=== PATIENT | male | born 1985 | race American Indian/Alaskan Native ===

== ENCOUNTER 2017-02-20 17:41 | Emergency (ER) | payer MEDICAID ==
[2017-02-20 18:28] LABS: Urine Drugs of Abuse Note Disclamer
[2017-02-20 18:41] LABS: Basophils % (Auto) 0.9 % (0.0-1.8); Hematocrit 40.2 % (35.5-45.6); Hemoglobin 13.3 gm/dl (11.8-15.2); Mean Corpuscular HGB Conc 33 % (32-34); Mean Corpuscular Hemoglobin 26 pg (28-32); Mean Corpuscular Volume 79 fl (84-94); Platelet Count 152 K/mm3 (140-440); Red Blood Count 5.08 M/mm3 (3.65-5.03); Red Cell Distribution Width 15.7 % (13.2-15.2)
[2017-02-20 18:42] LABS: Bilirubin,Urine NEG (Negative); Blood,Urine NEG (Negative); Ketones,Urine NEG (Negative); Leukocyte Esterase,Urine NEG (Negative); Nitrite,Urine NEG (Negative); Protein,Urine <15 mg/dL mg/dL (Negative); Urobilinogen,Urine < 2.0 mg/dL (<2.0)
[2017-02-20 18:48] LABS: Anion Gap 17 mmol/L; Blood Urea Nitrogen 9 mg/dL (9-20); Carbon Dioxide 25 mmol/L (22-30); Chloride 93.4 mmol/L (98-107); Glucose 94 mg/dL (75-100); Potassium 3.3 mmol/L (3.6-5.0); Sodium 132 mmol/L (137-145)
[2017-02-20] MEDS ORDERED: K-DUR PO ONE ×2 (19:04→23:54)
[2017-02-20] MEDS ORDERED: BENADRYL PO ONE ×2 (19:43→23:54)
[2017-02-20] MEDS ORDERED: ATIVAN IM PRN (19:43)
--- NOTE | 2017-02-20 19:44 | Emergency Department Report ---
ED Psych HPI - General Chief Complaint: Psych Stated Complaint: VOLUNTARY 1013 Time Seen by Provider: 02/20/17 19:36 Source: patient, EMS (ems notes not available at time of chart dictation), RN notes reviewed Mode of arrival: Ambulatory Limitations: No Limitations - History of Present Illness Initial Comments: This is a 31-year-old male. He is previously unknown to me. He reports a past history of schizophrenia. Patient presents to the ER with suicidal ideation and chronic renal hallucinations. He has no headache, neck pain, chest pain, abdominal pain or shortness of breath. He does not have access to guns or firearms. He denies intentional overdose. He states his symptoms are constant. He reports no exacerbating or relieving factors. He further reports that he has no pain. He requests Benadryl to help out with anxiety. MD Complaint: suicidal ideation, feels depressed -: Gradual Associated Psychiatric Symptoms: depression, suicidal ideation, auditory hallucinations History of same: Yes Quality: constant Improves With: none Worsens With: none If Self Harm: admits thoughts of - Related Data Allergies Allergy/AdvReac Type Severity Reaction Status Date / Time No Known Allergies Allergy Unverified 02/20/17 18:07 ED Review of Systems ROS: Stated complaint: VOLUNTARY 1013 Other details as noted in HPI Constitutional: denies: fever Eyes: denies: vision change ENT: denies: epistaxis Respiratory: denies: cough Cardiovascular: denies: chest pain Gastrointestinal: denies: abdominal pain Genitourinary: denies: urgency Musculoskeletal: denies: back pain Skin: denies: lesions Neurological: denies: headache Psychiatric: anxiety, auditory hallucinations, suicidal thoughts. denies: homicidal thoughts ED Past Medical Hx - Past Medical History Hx Psychiatric Treatment: Yes (schizophrenia) - Surgical History Past Surgical History?: Yes Additional Surgical History: testicular surgery - Social History Smoking Status: Current Some Day Smoker Substance Use Type: Alcohol ED Physical Exam - General Limitations: No Limitations General appearance: alert, in no apparent distress - Head Head exam: Present: atraumatic, normocephalic - Eye Eye exam: Present: normal appearance, PERRL, EOMI. Absent: nystagmus - ENT ENT exam: Present: normal exam, normal orophraynx, mucous membranes moist, normal external ear exam - Neck Neck exam: Present: normal inspection, full ROM. Absent: tenderness, meningismus - Respiratory Respiratory exam: Present: normal lung sounds bilaterally. Absent: respiratory distress, wheezes, rales, rhonchi, stridor, chest wall tenderness, accessory muscle use, decreased breath sounds, prolonged expiratory - Cardiovascular Cardiovascular Exam: Present: regular rate, normal rhythm, normal heart sounds. Absent: systolic murmur, diastolic murmur, rubs, gallop - GI/Abdominal GI/Abdominal exam: Present: soft, normal bowel sounds. Absent: distended, tenderness, guarding, rebound, rigid, pulsatile mass - Rectal Rectal exam: Present: deferred - Extremities Exam Extremities exam: Present: normal inspection, normal capillary refill. Absent: pedal edema, joint swelling, calf tenderness - Back Exam Back exam: Present: normal inspection, full ROM. Absent: tenderness, CVA tenderness (R), CVA tenderness (L), muscle spasm, paraspinal tenderness, vertebral tenderness - Neurological Exam Neurological exam: Present: alert, oriented X3, normal gait, other (Extraocular movements intact. Tongue midline. No facial droop. Facial sensation intact to light touch in the V1, V2, V3 distribution bilaterally. 5 and 5 strength in 4 extremities.. Sensation is intact to light touch in 4 extremities.). Absent : motor sensory deficit - Psychiatric Psychiatric exam: Present: anxious, flat affect, suicidal ideation. Absent: homicidal ideation - Skin Skin exam: Present: warm, dry, intact, normal color. Absent: rash ED Course Vital Signs 02/20/17 02/20/17 02/20/17 18:13 18:14 23:50 Temperature 98.6 F 98.7 F Pulse Rate 79 105 H Respiratory 16 16 17 Rate Blood Pressure 126/74 126/85 [Right] O2 Sat by Pulse 100 100 97 Oximetry ED Medical Decision Making - Lab Data Result diagrams: 02/20/17 18:18 02/20/17 18:18 Vital Signs 02/20/17 02/20/17 18:13 18:14 Temperature 98.6 F Pulse Rate 79 Respiratory 16 16 Rate Blood Pressure 126/74 [Right] O2 Sat by Pulse 100 100 Oximetry Labs 02/20/17 02/20/17 02/20/17 18:18 18:18 18:18 WBC RBC Hgb Hct MCV MCH MCHC RDW Plt Count Lymph % (Auto) [place] % (Auto) Eos % (Auto) Baso % (Auto) Lymph # [place] # Eos # Baso # Seg Neutrophils % Seg Neutrophils # Sodium 132 L Potassium 3.3 L Chloride 93.4 L Carbon Dioxide 25 Anion Gap 17 BUN 9 Creatinine 0.9 Estimated GFR > 60 BUN/Creatinine Ratio 10.00 Glucose 94 Calcium 9.0 Total Creatine Kinase Urine Color Colorless Urine Turbidity Clear Urine pH 6.0 Ur Specific [place] 1.001 L Urine Protein <15 mg/dl Urine Glucose (UA) Neg Urine Ketones Neg Urine Blood Neg Urine Nitrite Neg Urine Bilirubin Neg Urine Urobilinogen < 2.0 Ur Leukocyte Esterase Neg Urine WBC (Auto) 0.0 Urine RBC (Auto) 0.0 Salicylates Urine Opiates Screen Presumptive negative Urine Methadone Screen Presumptive negative Acetaminophen Ur Barbiturates Screen Presumptive negative Ur Phencyclidine Scrn Presumptive negative Ur Amphetamines Screen Presumptive negative U Benzodiazepines Scrn Presumptive negative Urine Cocaine Screen Presumptive negative U Marijuana (THC) Screen Presumptive negative Drugs of Abuse Note Disclamer Plasma/Serum Alcohol 02/20/17 02/20/17 02/20/17 18:18 18:18 18:18 WBC 5.0 RBC 5.08 H Hgb 13.3 Hct 40.2 MCV 79 L MCH 26 L MCHC 33 RDW 15.7 H Plt Count 152 Lymph % (Auto) 27.3 [place] % (Auto) 7.3 Eos % (Auto) 1.0 Baso % (Auto) 0.9 Lymph # 1.4 [place] # 0.4 Eos # 0.0 Baso # 0.0 Seg Neutrophils % 63.5 Seg Neutrophils # 3.2 Sodium Potassium Chloride Carbon Dioxide Anion Gap BUN Creatinine Estimated GFR BUN/Creatinine Ratio Glucose Calcium Total Creatine Kinase 436 H Urine Color Urine Turbidity Urine pH Ur Specific [place] Urine Protein Urine Glucose (UA) Urine Ketones Urine Blood Urine Nitrite Urine Bilirubin Urine Urobilinogen Ur Leukocyte Esterase Urine WBC (Auto) Urine RBC (Auto) Salicylates Urine Opiates Screen Urine Methadone Screen Acetaminophen Ur Barbiturates Screen Ur Phencyclidine Scrn Ur Amphetamines Screen U Benzodiazepines Scrn Urine Cocaine Screen U Marijuana (THC) Screen Drugs of Abuse Note Plasma/Serum Alcohol < 0.01 02/20/17 02/20/17 18:18 18:18 WBC RBC Hgb Hct MCV MCH MCHC RDW Plt Count Lymph % (Auto) [place] % (Auto) Eos % (Auto) Baso % (Auto) Lymph # [place] # Eos # Baso # Seg Neutrophils % Seg Neutrophils # Sodium Potassium Chloride Carbon Dioxide Anion Gap BUN Creatinine Estimated GFR BUN/Creatinine Ratio Glucose Calcium Total Creatine Kinase Urine Color Urine Turbidity Urine pH Ur Specific [place] Urine Protein Urine Glucose (UA) Urine Ketones Urine Blood Urine Nitrite Urine Bilirubin Urine Urobilinogen Ur Leukocyte Esterase Urine WBC (Auto) Urine RBC (Auto) Salicylates < 0.3 L Urine Opiates Screen Urine Methadone Screen Acetaminophen < 15.0 Ur Barbiturates Screen Ur Phencyclidine Scrn Ur Amphetamines Screen U Benzodiazepines Scrn Urine Cocaine Screen U Marijuana (THC) Screen Drugs of Abuse Note Plasma/Serum Alcohol - Medical Decision Making Differential diagnosis: Schizophrenia, psychosis, medical clearance for psychiatric placement Assessment and plan: 31-year-old male with depression and suicidality. He is afebrile, with reassuring vital signs, and an unremarkable physical examination , has a GCS of 15, with an NIH score of 0, and walks with a steady gait. He is placed on a 1013. His laboratory studies are unremarkable with the exception of mild hypokalemia. He is treated with Benadryl. He is placed for as needed Ativan. At this point in time, there does not appear to be any immediate medical contraindication to psychiatric admission/evaluation. The crisis team was informed. Critical care attestation.: If time is entered above; I have spent that time in minutes in the direct care of this critically ill patient, excluding procedure time. ED Disposition Clinical Impression: Mood disorder Disposition: [id number]/TX-65 PSY HOSP/PSY UNIT Is pt being admited?: No Does the pt Need Aspirin: No Condition: Stable Referrals: PRIMARY CARE, [Primary Care Provider] - 3-5 Days
--- NOTE | 2017-02-21 16:12 | Consultation ---
History of Present Illness - Reason for Consult Consult date: 02/21/17 Reason for consult: psychiatric evaluation - Chief Complaint Chief complaint: "I was stressed out" This is a 31-year-old male seen for psychiatric evaluation in the emergency department. He presented with suicidal ideation and hallucinations. He reports a past history of schizophrenia. He states that he made the statement that he wanted to hurt himself on false pretenses. He states that his goal of coming to the emergency Department was to get rest and his Invega Sustenna injection. Although he states he scheduled to receive his Invega Sustenna on Wednesday. He states that someone comes to his home to make sure he gets his medication. He is currently staying in transitional housing. He states he doesn't like it there because he cannot control his money that he gets from [facility]. He states he's been on other medications besides Invega, to include: Haldol, Risperdal, other older atypical antipsychotics. He states that Invega is more spiritual because it doesn't have the side effects like the other medicines do. He reports anxiety. He denies auditory hallucinations. He appears to be preoccupied on exam. He states his psychotic presentation involves auditory hallucinations which are overwhelming and surround him. He currently denies suicidal or homicidal ideation. He states that there are 2 men that have been following him around and want to kill him. He states he does not know why they would want to hurt him. He denies this being paranoia. Medications and Allergies Allergies Allergy/AdvReac Type Severity Reaction Status Date / Time No Known Allergies Allergy Unverified 02/20/17 18:07 Active Meds: Active Medications Lorazepam (Ativan) 2 mg IM Q4HR PRN PRN Reason: Agitation Past psychiatric history - Past Medical History Past Medical History: No medical history Past Surgical History: No surgical history - past Psychiatric treatment and history Psych: Schizophrenia psychiatric treatment history: He reports being hospitalized "a few times" within the last 12 months. He is not aware that he has been acting. Tonia does report some money comes to his home. He reports that over the last year he missed his Invega Sustenna injection 6 months out of that time. He was last hospitalized 01/10/2017. He currently resides in the [facility] [] Transitional home. ([phone])-Kam is the contact. - Social History Social history: other (denies alcohol or substance use) Mental Status Exam - Vital signs Last Vital Signs Temp 97.5 F L 02/21/17 10:09 Pulse 72 02/21/17 10:09 Resp 18 02/21/17 10:09 BP 102/54 02/21/17 10:09 Pulse Ox 97 02/21/17 10:09 - Exam Orientation: time, place, person Affect: flat Mood: anxious Thought content: paranoia, other (sabianist thought content. No suicidal or homicidal ideation.) Thought Process: Circumstantial Perceptions: auditory (he is preoccupied, looking around during the interview.) Concentration: distractible Motor activity: other (retarded) Level of consciousness: alert Memory: Intact Sleep Symptoms: None Interaction: cooperative Results Result Diagrams: 02/20/17 18:18 02/20/17 18:18 Abnormal lab results 02/20/17 02/20/17 02/20/17 Range/Units 18:18 18:18 18:18 RBC 5.08 H (3.65-5.03) M/mm3 MCV 79 L (84-94) fl MCH 26 L (28-32) pg RDW 15.7 H (13.2-15.2) % Sodium 132 L (137-145) mmol/L Potassium 3.3 L (3.6-5.0) mmol/L Chloride 93.4 L (98-107) mmol/L Total Creatine Kinase (55-170) units/L Ur Specific [place] 1.001 L (1.003-1.030) Salicylates (2.8-20.0) mg/dL 02/20/17 02/20/17 Range/Units 18:18 18:18 RBC (3.65-5.03) M/mm3 MCV (84-94) fl MCH (28-32) pg RDW (13.2-15.2) % Sodium (137-145) mmol/L Potassium (3.6-5.0) mmol/L Chloride (98-107) mmol/L Total Creatine Kinase 436 H (55-170) units/L Ur Specific [place] (1.003-1.030) Salicylates < 0.3 L (2.8-20.0) mg/dL All other labs normal. Assessment and Plan Assessment and plan: Impression: Schizophrenia, paranoid type Noncompliant with medication Recommendation: 1013 and transferred to inpatient psychiatric facility for further stabilization. Invega is not available in the hospital. The appropriate next choice would be Risperdal. That he is opposed to taking Risperdal stating that he had muscle spasms previously. He is also unwilling to try it with Benadryl or Cogentin.
[2017-02-22] MEDS ORDERED: HABITROL TD PRN (09:18)
--- NOTE | 2017-02-22 17:52 | Progress Note ---
Subjective - Reason for Consult Consult date: 02/22/17 Reason for consult: Psychiatry Follow-up - Chief Complaint Chief complaint: "I was making all this up" This is a 31-year-old male seen for psychiatric evaluation in the emergency department. Today patient is calm and cooperative during the assessment. He stated that he "lied" about being suicidal and experiencing AH's. He stated that he wanted to get his Invega injection early. He stated that he is scheduled to get the injection Wednesday. Patient could have contacted the agency who schedule the Invega injection, but decided to come to [facility] instead. He denies SI/HI's, AVH's, and depression. He refuses to take risperdal po because of side effects experienced in the past. Mental Status Exam - Vital signs Last Vital Signs Temp 97.9 F 02/22/17 09:06 Pulse 69 02/22/17 09:06 Resp 16 02/22/17 09:06 BP 112/68 02/22/17 09:06 Pulse Ox 99 02/22/17 09:06 - Exam Narrative exam: MSE: Appearance: calm Behavior: regular eye contact Speech: regular rate and tone Mood: "I'm okay" Affect: labile Thought Process: circumstantial Thought Content: denies SI/HI's and AVH's Motor Activity: ambulatory Cognition: A/Ox 3 Insight: limited Judgment: limited Assessment and Plan Impression: Historical Dx: Schizophrenia. Today patient is calm and cooperative during the assessment. Recommendation/Plan: Evaluate 1013 in 24 hours to determine proper dispo.
[2017-02-23 10:45] VITALS: BP 101/64
--- NOTE | 2017-02-23 14:56 | Progress Note ---
Subjective - Reason for Consult Consult date: 02/23/17 Reason for consult: Psychiatry Follow-up - Chief Complaint Chief complaint: "I am ready to go" This is a 31-year-old male seen for psychiatric evaluation in the emergency department. Today patient is calm and cooperative during the assessment. He stated that he learned his lesson about "not being truthful" on admission. He denies SI/HI's, paranoia, and AVH's. He stated that he will get his invega injection tomorrow. Mental Status Exam - Vital signs Last Vital Signs Temp 98.1 F 02/23/17 10:36 Pulse 84 02/23/17 10:36 Resp 20 02/23/17 10:44 BP 101/64 02/23/17 10:36 Pulse Ox 98 02/23/17 10:44 - Exam Narrative exam: MSE: Appearance: calm Behavior: regular eye contact Speech: regular rate and tone Mood: "okay" Affect: congruent to mood Thought Process: linear Thought Content: denies SI/HI's and AVH's Motor Activity: ambulatory Cognition: A/Ox 3 Insight: fair Judgment: fair Assessment and Plan Impression: Historical Dx: Schizophrenia. Today patient is calm and cooperative during the assessment. Patient is no threat to self or others. Recommendation/Plan: Rescind 1013. Patient is seen at [facility] for his psy services.
--- NOTE | 2017-02-23 19:09 | Event Note ---
Date: 02/23/17 Patient is not homicidal or suicidal. He has no complaints at this time. He is much more lucid, cogent and organized and on my prior evaluation. His 1013 has been discontinued by the psychiatric team. patient will be discharged with instructions to follow up with outpatient psychiatry [place]. 1013 is discontinued. Vital Signs 02/20/17 02/20/17 02/20/17 18:13 18:14 23:50 Temperature 98.6 F 98.7 F Pulse Rate 79 105 H Respiratory 16 16 17 Rate Blood Pressure [Left] Blood Pressure 126/74 126/85 [Right] O2 Sat by Pulse 100 100 97 Oximetry 02/21/17 02/21/17 02/22/17 10:09 22:00 09:06 Temperature 97.5 F L 98.6 F 97.9 F Pulse Rate 72 96 H 69 Respiratory 18 16 16 Rate Blood Pressure 112/68 [Left] Blood Pressure 102/54 96/58 [Right] O2 Sat by Pulse 97 98 99 Oximetry 02/22/17 02/23/17 02/23/17 21:00 04:56 10:36 Temperature 98.6 F 98.1 F Pulse Rate 81 84 Respiratory 18 18 20 Rate Blood Pressure 98/59 [Left] Blood Pressure 101/64 [Right] O2 Sat by Pulse 98 98 98 Oximetry 02/23/17 10:44 Temperature Pulse Rate Respiratory 20 Rate Blood Pressure [Left] Blood Pressure [Right] O2 Sat by Pulse 98 Oximetry Lab Results 02/20/17 02/20/17 02/20/17 Range/Units 18:18 18:18 18:18 WBC (4.5-11.0) K/mm3 RBC (3.65-5.03) M/mm3 Hgb (11.8-15.2) gm/dl Hct (35.5-45.6) % MCV (84-94) fl MCH (28-32) pg MCHC (32-34) % RDW (13.2-15.2) % Plt Count (140-440) K/mm3 Lymph % (Auto) (13.4-35.0) % [place] % (Auto) (0.0-7.3) % Eos % (Auto) (0.0-4.3) % Baso % (Auto) (0.0-1.8) % Lymph # (1.2-5.4) K/mm3 [place] # (0.0-0.8) K/mm3 Eos # (0.0-0.4) K/mm3 Baso # (0.0-0.1) K/mm3 Seg Neutrophils % (40.0-70.0) % Seg Neutrophils # (1.8-7.7) K/mm3 Sodium 132 L (137-145) mmol/L Potassium 3.3 L (3.6-5.0) mmol/L Chloride 93.4 L (98-107) mmol/L Carbon Dioxide 25 (22-30) mmol/L Anion Gap 17 mmol/L BUN 9 (9-20) mg/dL Creatinine 0.9 (0.8-1.5) mg/dL Estimated GFR > 60 ml/min BUN/Creatinine Ratio 10.00 % Glucose 94 (75-100) mg/dL Calcium 9.0 (8.4-10.2) mg/dL Total Creatine Kinase (55-170) units/L Urine Color Colorless (Yellow) Urine Turbidity Clear (Clear) Urine pH 6.0 (5.0-7.0) Ur Specific [place] 1.001 L (1.003-1.030) Urine Protein <15 mg/dl (Negative) mg/dL Urine Glucose (UA) Neg (Negative) mg/dL Urine Ketones Neg (Negative) mg/dL Urine Blood Neg (Negative) Urine Nitrite Neg (Negative) Urine Bilirubin Neg (Negative) Urine Urobilinogen < 2.0 (<2.0) mg/dL Ur Leukocyte Esterase Neg (Negative) Urine WBC (Auto) 0.0 (0.0-6.0) /HPF Urine RBC (Auto) 0.0 (0.0-6.0) /HPF Salicylates (2.8-20.0) mg/dL Urine Opiates Screen Presumptive negative Urine Methadone Screen Presumptive negative Acetaminophen (10.0-30.0) ug/mL Ur Barbiturates Screen Presumptive negative Ur Phencyclidine Scrn Presumptive negative Ur Amphetamines Screen Presumptive negative U Benzodiazepines Scrn Presumptive negative Urine Cocaine Screen Presumptive negative U Marijuana (THC) Screen Presumptive negative Drugs of Abuse Note Disclamer Plasma/Serum Alcohol (0-0.07) gm% 02/20/17 02/20/17 02/20/17 Range/Units 18:18 18:18 18:18 WBC 5.0 (4.5-11.0) K/mm3 RBC 5.08 H (3.65-5.03) M/mm3 Hgb 13.3 (11.8-15.2) gm/dl Hct 40.2 (35.5-45.6) % MCV 79 L (84-94) fl MCH 26 L (28-32) pg MCHC 33 (32-34) % RDW 15.7 H (13.2-15.2) % Plt Count 152 (140-440) K/mm3 Lymph % (Auto) 27.3 (13.4-35.0) % [place] % (Auto) 7.3 (0.0-7.3) % Eos % (Auto) 1.0 (0.0-4.3) % Baso % (Auto) 0.9 (0.0-1.8) % Lymph # 1.4 (1.2-5.4) K/mm3 [place] # 0.4 (0.0-0.8) K/mm3 Eos # 0.0 (0.0-0.4) K/mm3 Baso # 0.0 (0.0-0.1) K/mm3 Seg Neutrophils % 63.5 (40.0-70.0) % Seg Neutrophils # 3.2 (1.8-7.7) K/mm3 Sodium (137-145) mmol/L Potassium (3.6-5.0) mmol/L Chloride (98-107) mmol/L Carbon Dioxide (22-30) mmol/L Anion Gap mmol/L BUN (9-20) mg/dL Creatinine (0.8-1.5) mg/dL Estimated GFR ml/min BUN/Creatinine Ratio % Glucose (75-100) mg/dL Calcium (8.4-10.2) mg/dL Total Creatine Kinase 436 H (55-170) units/L Urine Color (Yellow) Urine Turbidity (Clear) Urine pH (5.0-7.0) Ur Specific [place] (1.003-1.030) Urine Protein (Negative) mg/dL Urine Glucose (UA) (Negative) mg/dL Urine Ketones (Negative) mg/dL Urine Blood (Negative) Urine Nitrite (Negative) Urine Bilirubin (Negative) Urine Urobilinogen (<2.0) mg/dL Ur Leukocyte Esterase (Negative) Urine WBC (Auto) (0.0-6.0) /HPF Urine RBC (Auto) (0.0-6.0) /HPF Salicylates (2.8-20.0) mg/dL Urine Opiates Screen Urine Methadone Screen Acetaminophen (10.0-30.0) ug/mL Ur Barbiturates Screen Ur Phencyclidine Scrn Ur Amphetamines Screen U Benzodiazepines Scrn Urine Cocaine Screen U Marijuana (THC) Screen Drugs of Abuse Note Plasma/Serum Alcohol < 0.01 (0-0.07) gm% 02/20/17 02/20/17 Range/Units 18:18 18:18 WBC (4.5-11.0) K/mm3 RBC (3.65-5.03) M/mm3 Hgb (11.8-15.2) gm/dl Hct (35.5-45.6) % MCV (84-94) fl MCH (28-32) pg MCHC (32-34) % RDW (13.2-15.2) % Plt Count (140-440) K/mm3 Lymph % (Auto) (13.4-35.0) % [place] % (Auto) (0.0-7.3) % Eos % (Auto) (0.0-4.3) % Baso % (Auto) (0.0-1.8) % Lymph # (1.2-5.4) K/mm3 [place] # (0.0-0.8) K/mm3 Eos # (0.0-0.4) K/mm3 Baso # (0.0-0.1) K/mm3 Seg Neutrophils % (40.0-70.0) % Seg Neutrophils # (1.8-7.7) K/mm3 Sodium (137-145) mmol/L Potassium (3.6-5.0) mmol/L Chloride (98-107) mmol/L Carbon Dioxide (22-30) mmol/L Anion Gap mmol/L BUN (9-20) mg/dL Creatinine (0.8-1.5) mg/dL Estimated GFR ml/min BUN/Creatinine Ratio % Glucose (75-100) mg/dL Calcium (8.4-10.2) mg/dL Total Creatine Kinase (55-170) units/L Urine Color (Yellow) Urine Turbidity (Clear) Urine pH (5.0-7.0) Ur Specific [place] (1.003-1.030) Urine Protein (Negative) mg/dL Urine Glucose (UA) (Negative) mg/dL Urine Ketones (Negative) mg/dL Urine Blood (Negative) Urine Nitrite (Negative) Urine Bilirubin (Negative) Urine Urobilinogen (<2.0) mg/dL Ur Leukocyte Esterase (Negative) Urine WBC (Auto) (0.0-6.0) /HPF Urine RBC (Auto) (0.0-6.0) /HPF Salicylates < 0.3 L (2.8-20.0) mg/dL Urine Opiates Screen Urine Methadone Screen Acetaminophen < 15.0 (10.0-30.0) ug/mL Ur Barbiturates Screen Ur Phencyclidine Scrn Ur Amphetamines Screen U Benzodiazepines Scrn Urine Cocaine Screen U Marijuana (THC) Screen Drugs of Abuse Note Plasma/Serum Alcohol (0-0.07) gm%
== END 2017-02-23 19:10 | disposition home or self-care (01) ==
LOC: ED 17:41 → EEVIPCON 17:41 → ED 02-23 19:10
DX: F39 Unspecified mood [affective] disorder (principal); F20.9 Schizophrenia, unspecified; Z72.0 Tobacco use
CPT/HCPCS: 36415; 80048; 80307; 81001; 82550; 85025; 96372; 99284; G0480; J2060; 80320

== ENCOUNTER 2019-11-04 20:47 | Emergency (ER) | payer MEDICAID ==
[2019-11-04 22:22] LABS: Eosinophils # (Auto) 0.1 K/mm3 (0.0-0.4); Hematocrit 38.8 % (35.5-45.6); Hemoglobin 13.1 gm/dl (11.8-15.2); Lymphocytes # (Auto) 1.2 K/mm3 (1.2-5.4); Lymphocytes % (Auto) 32.3 % (13.4-35.0); Mean Corpuscular HGB Conc 34 % (32-34); Mean Corpuscular Volume 85 fl (84-94); Monocytes # (Auto) 0.5 K/mm3 (0.0-0.8); Monocytes % (Auto) 11.9 % (0.0-7.3); Platelet Count 165 K/mm3 (140-440); Red Blood Count 4.57 M/mm3 (3.65-5.03); Red Cell Distribution Width 14.1 % (13.2-15.2)
[2019-11-04 22:40] LABS: BUN/Creatinine Ratio 9; Blood Urea Nitrogen 8 mg/dL (9-20); Calcium 9.3 mg/dL (8.4-10.2); Hemolysis Index 5
[2019-11-04 23:36] LABS: Bilirubin,Urine NEG (Negative); Blood,Urine NEG (Negative); Color,Urine Yellow (Yellow); Protein,Urine <15 mg/dL mg/dL (Negative); Urobilinogen,Urine < 2.0 mg/dL (<2.0); WBC,Urine < 1.0 /HPF (0.0-6.0)
[2019-11-04 23:40] LABS: Amphetamine Screen,Urine PRESUMPTIVE NEGATIVE; Benzodiazepines Screen,Urine PRESUMPTIVE NEGATIVE; Cannabinoid Screen,Urine PRESUMPTIVE NEGATIVE; Cocaine Screen,Urine PRESUMPTIVE NEGATIVE; Methadone Screen,Urine PRESUMPTIVE NEGATIVE; Opiate Screen,Urine PRESUMPTIVE NEGATIVE
--- NOTE | 2019-11-05 01:33 | Emergency Department Report ---
<BURKE DEGROOT - Last Filed: 11/05/19 16:00> ED Psych HPI - General Chief Complaint: Psych Stated Complaint: SUICIDAL Time Seen by Provider: 11/04/19 21:09 - Related Data Home Medications Medication Instructions Recorded Confirmed Last Taken No Known Home Medications [No 02/22/17 02/22/17 Unknown Reported Home Medications] Allergies Allergy/AdvReac Type Severity Reaction Status Date / Time No Known Allergies Allergy Unverified 02/20/17 18:07 ED Past Medical Hx - Medications Home Medications: Home Medications Medication Instructions Recorded Confirmed Last Taken Type No Known Home Medications [No 02/22/17 02/22/17 Unknown History Reported Home Medications] ED Course - Reevaluation(s) Reevaluation #1: 11/05/19 16:01 Patient has been accepted to [place] ED Medical Decision Making - Lab Data Result diagrams: 11/04/19 21:54 11/04/19 21:54 ED Disposition Clinical Impression: Schizophrenia, Suicidal ideation Disposition: DC/TX-65 PSY HOSP/PSY UNIT Is pt being admited?: No Does the pt Need Aspirin: No Condition: Stable Time of Disposition: 16:01 <GRIFFIN LLOYD - Last Filed: 11/05/19 22:49> ED Psych HPI - General Source: patient, EMS Mode of arrival: Ambulatory Limitations: No Limitations - History of Present Illness Initial Comments: 34-year-old male with a past medical history of schizophrenia presents to the hospital complaining of suicidal ideation x2 weeks. Patient also endorses auditory or visual hallucinations. Patient states he has been compliant with his every 3 monthly injectable antipsychotic medication. Last dose was 10/07. Pt denies pain or physical complaints. ED Review of Systems ROS: Stated complaint: SUICIDAL Other details as noted in HPI Comment: All other systems reviewed and negative ED Past Medical Hx - Past Medical History Hx Psychiatric Treatment: Yes (schizophrenia) - Surgical History Additional Surgical History: testicular surgery - Social History Smoking Status: Current Every Day Smoker Substance Use Type: Alcohol ED Physical Exam - General Limitations: No Limitations - Other Other exam information: General: No acute distress Head: Atraumatic Eyes: normal appearance ENT: Moist mucous membranes Neck: Normal appearance, no midline tenderness Chest: Clear to auscultation bilaterally CV: Regular rate and rhythm Abdomen: Soft, normal bowel sounds, nontender, nondistended, no rebound or g uarding Back: Normal inspection Extremity: Normal inspection, full range of motion Neuro: Alert O x 3, no facial asymmetry, speech clear, no gross motor sensory deficit Psych: Appropriate behavior Skin: No rash ED Course Vital Signs 11/04/19 11/04/19 11/04/19 20:59 21:47 22:07 Temperature 98.9 F 98.9 F Pulse Rate 89 Respiratory 18 16 Rate Blood Pressure 122/75 [Right] O2 Sat by Pulse 98 Oximetry 11/05/19 11/05/19 11/05/19 01:00 07:00 13:00 Temperature 98.6 F 97.9 F 98.3 F Pulse Rate 87 74 71 Respiratory 22 18 16 Rate Blood Pressure 126/72 107/70 105/68 [Right] O2 Sat by Pulse 96 98 96 Oximetry ED Medical Decision Making - Lab Data Result diagrams: 11/04/19 21:54 11/04/19 21:54 Critical care attestation.: If time is entered above; I have spent that time in minutes in the direct care of this critically ill patient, excluding procedure time.
[2019-11-05 14:56] VITALS: BP 105/68
== END 2019-11-05 16:40 ==
LOC: ED 20:47
DX: F20.9 Schizophrenia, unspecified (principal); R45.851 Suicidal ideations; F17.200 Nicotine dependence, unspecified, uncomplicated; Z98.890 Other specified postprocedural states
CPT/HCPCS: 36415; 80048; 80307; 80320; 81001; 85025; G0480

== ENCOUNTER 2019-12-02 10:06 | Emergency (ER) | payer MEDICAID ==
[2019-12-02 10:56] LABS: BUN/Creatinine Ratio 8; Blood Urea Nitrogen 9 mg/dL (9-20); Calcium 9.7 mg/dL (8.4-10.2); Hemolysis Index 5
[2019-12-02 10:59] LABS: Basophils % (Auto) 0.5 % (0.0-1.8); Eosinophils % (Auto) 0.6 % (0.0-4.3); Hematocrit 39.7 % (35.5-45.6); Hemoglobin 13.5 gm/dl (11.8-15.2); Lymphocytes # (Auto) 1.4 K/mm3 (1.2-5.4); Lymphocytes % (Auto) 23.3 % (13.4-35.0); Mean Corpuscular HGB Conc 34 % (32-34); Mean Corpuscular Volume 85 fl (84-94); Monocytes # (Auto) 0.6 K/mm3 (0.0-0.8); Monocytes % (Auto) 9.4 % (0.0-7.3); Platelet Count 168 K/mm3 (140-440); Red Blood Count 4.67 M/mm3 (3.65-5.03); Red Cell Distribution Width 14.1 % (13.2-15.2)
[2019-12-02 11:06] LABS: Bilirubin,Urine NEG (Negative); Blood,Urine NEG (Negative); Color,Urine Yellow (Yellow); Mucus,Urine FEW /HPF; Protein,Urine <15 mg/dL mg/dL (Negative); WBC,Urine < 1.0 /HPF (0.0-6.0)
[2019-12-02 11:18] LABS: Amphetamine Screen,Urine PRESUMPTIVE NEGATIVE; Benzodiazepines Screen,Urine PRESUMPTIVE NEGATIVE; Cannabinoid Screen,Urine PRESUMPTIVE NEGATIVE; Cocaine Screen,Urine PRESUMPTIVE NEGATIVE; Methadone Screen,Urine PRESUMPTIVE NEGATIVE; Opiate Screen,Urine PRESUMPTIVE NEGATIVE
--- NOTE | 2019-12-02 11:55 | Emergency Department Report ---
<WILFRED COOK - Last Filed: 12/02/19 14:17> ED Psych HPI - General Chief Complaint: Psych Stated Complaint: SUIDICAL THOUGHTS Time Seen by Provider: 12/02/19 11:45 Source: patient, police Mode of arrival: Ambulatory - History of Present Illness Initial Comments: This is a 34-year-old man with a history of schizophrenia. He admits to prior mental health hospital admissions but suggested has not been since he is 20. He denies any admissions in this area. He states that he drank antifreeze when he was 20. He admits to having a habit of taking a capful of Clorox every so often. He states the last time he did it was 2 weeks ago. He is not ingested any antifreeze or recent alcohol. He states he is homeless. He states that he gets a shot of medications for his mental health condition every 3 months but takes nothing by mouth. He claims the reason why he came here today is because he was thinking about drinking bleach again. He does not complain of active suicidal intent. He does not complain of any acute hallucinosis. MD Complaint: suicidal ideation -: days(s) Associated Psychiatric Symptoms: delusions (Most likely) History of same: Yes Quality: intermittent Improves With: none Worsens With: none Context: other (Uncertain compliance) Associated Symptoms: denies other symptoms Treatments Prior to Arrival: none If Self Harm: admits thoughts of (As above described) - Related Data Home Medications Medication Instructions Recorded Confirmed Last Taken No Known Home Medications [No 02/22/17 02/22/17 Unknown Reported Home Medications] Allergies Allergy/AdvReac Type Severity Reaction Status Date / Time No Known Allergies Allergy Unverified 02/20/17 18:07 ED Review of Systems Constitutional: denies: chills, fever Eyes: denies: eye pain, eye discharge, vision change ENT: denies: ear pain, throat pain Respiratory: denies: cough, shortness of breath, wheezing Cardiovascular: denies: chest pain, palpitations Endocrine: no symptoms reported Gastrointestinal: denies: abdominal pain, nausea, diarrhea Genitourinary: denies: urgency, dysuria Musculoskeletal: denies: back pain, arthralgia Skin: denies: rash, lesions Neurological: denies: headache, weakness, paresthesias Psychiatric: denies: anxiety, depression Hematological/Lymphatic: denies: easy bleeding, easy bruising ED Past Medical Hx - Past Medical History Previous Medical History?: Yes Hx Psychiatric Treatment: Yes (schizophrenia) - Surgical History Past Surgical History?: Yes Additional Surgical History: testicular surgery - Social History Smoking Status: Current Some Day Smoker Substance Use Type: Alcohol, Marijuana - Medications Home Medications: Home Medications Medication Instructions Recorded Confirmed Last Taken Type No Known Home Medications [No 02/22/17 02/22/17 Unknown History Reported Home Medications] ED Physical Exam - General Limitations: No Limitations, Other General appearance: alert, in no apparent distress - Head Head exam: Present: atraumatic, normocephalic - Eye Eye exam: Present: normal appearance. Absent: scleral icterus - ENT ENT exam: Present: mucous membranes moist - Neck Neck exam: Present: normal inspection. Absent: tenderness - Respiratory Respiratory exam: Present: normal lung sounds bilaterally. Absent: respiratory distress - Cardiovascular Cardiovascular Exam: Present: regular rate, normal rhythm. Absent: systolic murmur, diastolic murmur, rubs, gallop - GI/Abdominal GI/Abdominal exam: Present: soft, normal bowel sounds. Absent: distended, tenderness, guarding, rebound - Rectal Rectal exam: Present: deferred - Extremities Exam Extremities exam: Present: normal inspection - Back Exam Back exam: Present: normal inspection - Neurological Exam Neurological exam: Present: alert, oriented X3, CN II-XII intact. Absent: motor sensory deficit - Psychiatric Psychiatric exam: Present: normal mood, flat affect - Skin Skin exam: Present: warm, dry, intact, normal color. Absent: rash ED Course - Reevaluation(s) Reevaluation #1: Awaiting mental health assessment. 12/02/19 12:02 ED Medical Decision Making - Lab Data Result diagrams: 12/02/19 10:27 12/02/19 10:27 Laboratory Results - last 24 hr 12/02/19 12/02/19 12/02/19 10:27 10:27 10:27 WBC RBC Hgb Hct MCV MCH MCHC RDW Plt Count Lymph % (Auto) [place] % (Auto) Eos % (Auto) Baso % (Auto) Lymph # [place] # Eos # Baso # Seg Neutrophils % Seg Neutrophils # Sodium 139 Potassium 4.0 Chloride 99.0 Carbon Dioxide 27 Anion Gap 17 BUN 9 Creatinine 1.1 Estimated GFR > 60 BUN/Creatinine Ratio 8 Glucose 93 Calcium 9.7 Urine Color Urine Turbidity Urine pH Ur Specific [place] Urine Protein Urine Glucose (UA) Urine Ketones Urine Blood Urine Nitrite Urine Bilirubin Urine Urobilinogen Ur Leukocyte Esterase Urine WBC (Auto) Urine RBC (Auto) Urine Mucus Salicylates < 0.3 L Urine Opiates Screen Urine Methadone Screen Acetaminophen < 5.0 L Ur Barbiturates Screen Ur Phencyclidine Scrn Ur Amphetamines Screen U Benzodiazepines Scrn Urine Cocaine Screen U Marijuana (THC) Screen Drugs of Abuse Note Plasma/Serum Alcohol 12/02/19 12/02/19 12/02/19 10:27 10:27 10:31 WBC 5.9 RBC 4.67 Hgb 13.5 Hct 39.7 MCV 85 MCH 29 MCHC 34 RDW 14.1 Plt Count 168 Lymph % (Auto) 23.3 [place] % (Auto) 9.4 H Eos % (Auto) 0.6 Baso % (Auto) 0.5 Lymph # 1.4 [place] # 0.6 Eos # 0.0 Baso # 0.0 Seg Neutrophils % 66.2 Seg Neutrophils # 3.9 Sodium Potassium Chloride Carbon Dioxide Anion Gap BUN Creatinine Estimated GFR BUN/Creatinine Ratio Glucose Calcium Urine Color Yellow Urine Turbidity Clear Urine pH 6.0 Ur Specific [place] 1.017 Urine Protein <15 mg/dl Urine Glucose (UA) Neg Urine Ketones Neg Urine Blood Neg Urine Nitrite Neg Urine Bilirubin Neg Urine Urobilinogen 2.0 Ur Leukocyte Esterase Neg Urine WBC (Auto) < 1.0 Urine RBC (Auto) 3.0 Urine Mucus Few Salicylates Urine Opiates Screen Urine Methadone Screen Acetaminophen Ur Barbiturates Screen Ur Phencyclidine Scrn Ur Amphetamines Screen U Benzodiazepines Scrn Urine Cocaine Screen U Marijuana (THC) Screen Drugs of Abuse Note Plasma/Serum Alcohol < 0.01 12/02/19 10:31 WBC RBC Hgb Hct MCV MCH MCHC RDW Plt Count Lymph % (Auto) [place] % (Auto) Eos % (Auto) Baso % (Auto) Lymph # [place] # Eos # Baso # Seg Neutrophils % Seg Neutrophils # Sodium Potassium Chloride Carbon Dioxide Anion Gap BUN Creatinine Estimated GFR BUN/Creatinine Ratio Glucose Calcium Urine Color Urine Turbidity Urine pH Ur Specific [place] Urine Protein Urine Glucose (UA) Urine Ketones Urine Blood Urine Nitrite Urine Bilirubin Urine Urobilinogen Ur Leukocyte Esterase Urine WBC (Auto) Urine RBC (Auto) Urine Mucus Salicylates Urine Opiates Screen Presumptive negative Urine Methadone Screen Presumptive negative Acetaminophen Ur Barbiturates Screen Presumptive negative Ur Phencyclidine Scrn Presumptive negative Ur Amphetamines Screen Presumptive negative U Benzodiazepines Scrn Presumptive negative Urine Cocaine Screen Presumptive negative U Marijuana (THC) Screen Presumptive negative Drugs of Abuse Note Disclamer Plasma/Serum Alcohol ED Disposition Clinical Impression: General medical exam, History of drug overdose Disposition: DC-01 TO HOME OR SELFCARE Condition: Stable Additional Instructions: Continue outpatient medications, if patient is taking current prescription medications. Do not take Motrin, ibuprofen, Naprosyn, Aleve. Please do not intentionally ingest bleach, detergent, or any other products not intended for human consumption. A consumption of products in an inappropriate manner may cause , disability, paralysis, loss of quality of life. Follow-up with an outpatient primary care doctor within the next month. Follow- up with an outpatient therapist or psychiatrist within the next month. Return to the emergency room right away with new, worsened or different symptoms, or symptoms not present on the initial emergency room evaluation Referrals: [facility] [Provider Group] - as needed <KIKA SARAH - Last Filed: 12/02/19 16:26> ED Review of Systems ROS: Stated complaint: SUIDICAL THOUGHTS Other details as noted in HPI ED Course Vital Signs 12/02/19 12/02/19 10:11 15:00 Temperature 98.2 F 97.9 F Pulse Rate 112 H 78 Respiratory 20 18 Rate Blood Pressure 109/60 Blood Pressure 119/81 [Left] O2 Sat by Pulse 97 97 Oximetry - Reevaluation(s) Reevaluation #2: 12/02/19 16:24 Patient walking around room, and in no acute distress. Vital signs have remained stable. Seen by psychiatry, and cleared. Does not meet criteria for 1013. Reported time of ingestion 1 week ago. Vital signs, laboratory studies are reviewed. ED Medical Decision Making - Lab Data Result diagrams: 12/02/19 10:27 12/02/19 10:27 Vital Signs 12/02/19 12/02/19 10:11 15:00 Temperature 98.2 F 97.9 F Pulse Rate 112 H 78 Respiratory 20 18 Rate Blood Pressure 109/60 Blood Pressure 119/81 [Left] O2 Sat by Pulse 97 97 Oximetry Critical care attestation.: If time is entered above; I have spent that time in minutes in the direct care of this critically ill patient, excluding procedure time. ED Disposition Is pt being admited?: No Does the pt Need Aspirin: No
[2019-12-02 15:54] VITALS: BP 119/81
== END 2019-12-02 17:00 | disposition home or self-care (01) ==
LOC: ED 10:06
DX: R45.851 Suicidal ideations (principal); F20.9 Schizophrenia, unspecified; F17.200 Nicotine dependence, unspecified, uncomplicated; F12.10 Cannabis abuse, uncomplicated; Z00.00 Encounter for general adult medical examination without abnormal findings; Z98.890 Other specified postprocedural states
CPT/HCPCS: 36415; 80048; 80307; 80320; 81001; 85025; G0480

== ENCOUNTER 2020-02-18 10:58 | Emergency (ER) | payer MEDICAID ==
[2020-02-18 11:26] VITALS: BP 126/70
--- NOTE | 2020-02-18 13:08 | Emergency Department Report ---
Chief Complaint: Urogenital-Male Stated Complaint: STD Time Seen by Provider: 02/18/20 12:34 - HPI History of Present Illness: 34-year-old -[place] male presents to the emergency room complaining of STD symptoms x2 months. Patient denies any fever chills no nausea no vomiting. Patient denies any abdominal pain chest pain shortness of breath. Patient admits to dysuria. Patient has a past medical history of schizophrenia. - Exam Vital Signs: Vital Signs 02/18/20 11:24 Temperature 98.5 F Pulse Rate 89 Respiratory 18 Rate Blood Pressure 126/70 [Right] O2 Sat by Pulse 97 Oximetry Physical Exam: Patient is alert and oriented x3 no acute distress nontoxic in appearance Ambulatory without difficulties. MSE screening note: Focused history and physical exam performed. Due to findings the following was ordered: 34-year-old -[place] male presents to the emergency room complaining of STD symptoms x2 months. Patient denies any fever chills no nausea no vomiting. Patient denies any abdominal pain chest pain shortness of breath. Patient admits to dysuria. Patient has a past medical history of schizophrenia. Recommend following up at the health department. Patient left before discharge paperwork could be given. ED Disposition for MSE Disposition: Z- MED SCREENING EXAM-LEFT Is pt being admited?: No Does the pt Need Aspirin: No Condition: Stable Referrals: [facility] [Outside] - 3-5 Days [facility] Dep[facility] [Outside] - 3-5 Days
== END 2020-02-18 13:02 | disposition left against medical advice (07) ==
LOC: ED 10:58
DX: Z20.2 Contact with and (suspected) exposure to infections with a predominantly sexual mode of transmission (principal); Z53.21 Procedure and treatment not carried out due to patient leaving prior to being seen by health care provider

== ENCOUNTER 2020-03-31 11:17 | Emergency (ER) | payer MEDICAID ==
[2020-03-31 12:11] LABS: Bilirubin,Urine NEG (Negative); Blood,Urine NEG (Negative); Color,Urine Yellow (Yellow); Protein,Urine <15 mg/dL mg/dL (Negative); RBC,Urine < 1.0 /HPF (0.0-6.0); Urobilinogen,Urine < 2.0 mg/dL (<2.0)
[2020-03-31 12:18] LABS: Amphetamine Screen,Urine Negative; Benzodiazepines Screen,Urine Negative; Cannabinoid Screen,Urine Negative; Cocaine Screen,Urine Negative; Methadone Screen,Urine Negative; Opiate Screen,Urine Negative; WBC,Urine < 1.0 /HPF (0.0-6.0)
--- NOTE | 2020-03-31 12:22 | Emergency Department Report ---
<GABRIELLAMEGANRUFINA AdithyaJeanine - Last Filed: 04/02/20 12:43> ED Psych HPI - General Chief Complaint: Psych Stated Complaint: SI Time Seen by Provider: 03/31/20 11:27 - Related Data Home Medications Medication Instructions Recorded Confirmed Last Taken No Known Home Medications [No 02/22/17 02/22/17 Unknown Reported Home Medications] Allergies Allergy/AdvReac Type Severity Reaction Status Date / Time No Known Allergies Allergy Unverified 02/20/17 18:07 ED Past Medical Hx - Medications Home Medications: Home Medications Medication Instructions Recorded Confirmed Last Taken Type No Known Home Medications [No 02/22/17 02/22/17 Unknown History Reported Home Medications] ED Medical Decision Making - Lab Data Result diagrams: 03/31/20 11:43 03/31/20 11:43 - Medical Decision Making 5-year-old male with a past medical history of schizophrenia presents to the hospital planing of suicidal ideation with plan to shoot himself. Patient states he has been homeless times the beginning of the month because he used his long term rent money to purchase a gun on the street. Patient states he has been hearing voices x1 month however, voices are now telling him that they want to be him, replace him, and take his holy blessings. Patient is feeling suicidal with plan to shoot himself. He states a friend is currently holding his gun for him. Patient takes InVega once a month of last dose a couple days ago. Patient is also homeless and has nowhere to live at this time. No physical complaints reported. Patient medically cleared and has been evaluated by our psychiatric team and a dvised to discharge patient home and follow-up as an outpatient. Patient is calm, alert and oriented x3 no acute distress. Patient denying any suicidal homicidal ideation. Patient also denied any auditory or visual hallucination. Patient is medically and psychiatrically stable for discharge. ED Disposition Clinical Impression: Suicidal ideation, Schizophrenia, Medical clearance for psychiatric admission, Homeless Disposition: DC-01 TO HOME OR SELFCARE Condition: Stable Additional Instructions: Professional and Agency Contacts To help [facility](01/03) [place] Crisis Line: Suicide Prevention Line: Crisis [place] [address] Emergency: 911 Outpatient [facility] Behavior[facility] Resources: [facility]: [facility] [address] [place], [place] [address] [place]: [facility] - [address] [place] [address] Wednesday thru Wednesday - 8am - 5pm [facility] Address: [address] [place] [address] Wednesday thru Wednesday- 7am-2pm [facility] Address: [address] [place] [address] Wednesday thru Wednesday: 8:30AM-5PM Referrals: KRYSTLE CARPIO MD [Primary Care Provider] - 3-5 Days <GRIFFIN LLOYD - Last Filed: 04/02/20 22:50> ED Psych HPI - General Source: patient, EMS Mode of arrival: Ambulatory Limitations: No Limitations - History of Present Illness Initial Comments: 35-year-old male with a past medical history of schizophrenia presents to the hospital planing of suicidal ideation with plan to shoot himself. Patient states he has been homeless times the beginning of the month because he used his long term rent money to purchase a gun on the street. Patient states he has been hearing voices x1 month however, voices are now telling him that they want to be him, replace him, and take his holy blessings. Patient is feeling suicidal with plan to shoot himself. He states a friend is currently holding his gun for him. Patient takes InVega once a month of last dose a couple days ago. Patient is also homeless and has nowhere to live at this time. No p hysical complaints reported ED Review of Systems ROS: Stated complaint: SI Other details as noted in HPI Comment: All other systems reviewed and negative ED Past Medical Hx - Past Medical History Previous Medical History?: Yes Hx Psychiatric Treatment: Yes (schizophrenia) - Surgical History Additional Surgical History: testicular surgery - Social History Smoking Status: Current Some Day Smoker Substance Use Type: Alcohol, Marijuana ED Physical Exam - General Limitations: No Limitations - Other Other exam information: General: No acute distress Head: Atraumatic Eyes: normal appearance ENT: Moist mucous membranes Neck: Normal appearance, no midline tenderness Chest: Clear to auscultation bilaterally CV: Regular rate and rhythm Abdomen: Soft, normal bowel sounds, nontender, nondistended, no rebound or guarding Back: Normal inspection Extremity: Normal inspection, full range of motion Neuro: Alert O x 3, no facial asymmetry, speech clear, no gross motor sensory deficit Psych: Appropriate behavior Skin: No rash ED Course Vital Signs 03/31/20 03/31/20 03/31/20 11:26 11:30 11:44 Temperature 97.9 F 97.5 F L Pulse Rate 114 H 90 Respiratory 16 16 20 Rate Blood Pressure 128/78 122/74 [Left] O2 Sat by Pulse 94 94 100 Oximetry 03/31/20 04/01/20 04/01/20 19:26 02:10 08:38 Temperature 98.9 F 98.6 F 98.1 F Pulse Rate 76 64 71 Respiratory 16 16 16 Rate Blood Pressure 100/60 101/60 106/76 [Left] O2 Sat by Pulse 97 97 96 Oximetry 04/01/20 04/02/20 04/02/20 19:55 02:25 08:51 Temperature 98.3 F 98.7 F 98.2 F Pulse Rate 65 66 78 Respiratory 16 16 19 Rate Blood Pressure 101/63 108/60 117/82 [Left] O2 Sat by Pulse 100 100 97 Oximetry ED Medical Decision Making - Lab Data Result diagrams: 03/31/20 11:43 03/31/20 11:43 Lab Results 03/31/20 03/31/20 03/31/20 Range/Units 11:43 11:43 11:43 WBC (4.5-11.0) K/mm3 RBC (3.65-5.03) M/mm3 Hgb (11.8-15.2) gm/dl Hct (35.5-45.6) % MCV (84-94) fl MCH (28-32) pg MCHC (32-34) % RDW (13.2-15.2) % Plt Count (140-440) K/mm3 Lymph % (Auto) (13.4-35.0) % Schleicher % (Auto) (0.0-7.3) % Eos % (Auto) (0.0-4.3) % Baso % (Auto) (0.0-1.8) % Lymph # (1.2-5.4) K/mm3 Schleicher # (0.0-0.8) K/mm3 Eos # (0.0-0.4) K/mm3 Baso # (0.0-0.1) K/mm3 Seg Neutrophils % (40.0-70.0) % Seg Neutrophils # (1.8-7.7) K/mm3 Sodium 140 (137-145) mmol/L Potassium 4.3 (3.6-5.0) mmol/L Chloride 103.1 (98-107) mmol/L Carbon Dioxide 23 (22-30) mmol/L Anion Gap 18 mmol/L BUN 12 (9-20) mg/dL Creatinine 0.8 (0.8-1.3) mg/dL Estimated GFR > 60 ml/min BUN/Creatinine Ratio 15 % Glucose 95 (75-100) mg/dL Calcium 9.6 (8.4-10.2) mg/dL Urine Color (Yellow) Urine Turbidity (Clear) Urine pH (5.0-7.0) Ur Specific [place] (1.003-1.030) Urine Protein (Negative) mg/dL Urine Glucose (UA) (Negative) mg/dL Urine Ketones (Negative) mg/dL Urine Blood (Negative) Urine Nitrite (Negative) Urine Bilirubin (Negative) Urine Urobilinogen (<2.0) mg/dL Ur Leukocyte Esterase (Negative) Urine WBC (Auto) (0.0-6.0) /HPF Urine RBC (Auto) (0.0-6.0) /HPF Salicylates < 0.3 L (2.8-20.0) mg/dL Urine Opiates Screen Urine Methadone Screen Acetaminophen < 5.0 L (10.0-30.0) ug/mL Ur Barbiturates Screen Ur Phencyclidine Scrn Ur Amphetamines Screen U Benzodiazepines Scrn Urine Cocaine Screen U Marijuana (THC) Screen Drugs of Abuse Note Plasma/Serum Alcohol (0-0.07) % 03/31/20 03/31/20 03/31/20 Range/Units 11:43 11:43 Unknown WBC 4.0 L (4.5-11.0) K/mm3 RBC 4.59 (3.65-5.03) M/mm3 Hgb 13.0 (11.8-15.2) gm/dl Hct 38.2 (35.5-45.6) % MCV 83 L (84-94) fl MCH 28 (28-32) pg MCHC 34 (32-34) % RDW 13.7 (13.2-15.2) % Plt Count 217 (140-440) K/mm3 Lymph % (Auto) 33.7 (13.4-35.0) % Schleicher % (Auto) 11.5 H (0.0-7.3) % Eos % (Auto) 8.2 H (0.0-4.3) % Baso % (Auto) 1.2 (0.0-1.8) % Lymph # 1.3 (1.2-5.4) K/mm3 Schleicher # 0.5 (0.0-0.8) K/mm3 Eos # 0.3 (0.0-0.4) K/mm3 Baso # 0.0 (0.0-0.1) K/mm3 Seg Neutrophils % 45.4 (40.0-70.0) % Seg Neutrophils # 1.8 (1.8-7.7) K/mm3 Sodium (137-145) mmol/L Potassium (3.6-5.0) mmol/L Chloride (98-107) mmol/L Carbon Dioxide (22-30) mmol/L Anion Gap mmol/L BUN (9-20) mg/dL Creatinine (0.8-1.3) mg/dL Estimated GFR ml/min BUN/Creatinine Ratio % Glucose (75-100) mg/dL Calcium (8.4-10.2) mg/dL Urine Color Yellow (Yellow) Urine Turbidity Clear (Clear) Urine pH 5.0 (5.0-7.0) Ur Specific [place] 1.010 (1.003-1.030) Urine Protein <15 mg/dl (Negative) mg/dL Urine Glucose (UA) Neg (Negative) mg/dL Urine Ketones Neg (Negative) mg/dL Urine Blood Neg (Negative) Urine Nitrite Neg (Negative) Urine Bilirubin Neg (Negative) Urine Urobilinogen < 2.0 (<2.0) mg/dL Ur Leukocyte Esterase Neg (Negative) Urine WBC (Auto) < 1.0 (0.0-6.0) /HPF Urine RBC (Auto) < 1.0 (0.0-6.0) /HPF Salicylates (2.8-20.0) mg/dL Urine Opiates Screen Urine Methadone Screen Acetaminophen (10.0-30.0) ug/mL Ur Barbiturates Screen Ur Phencyclidine Scrn Ur Amphetamines Screen U Benzodiazepines Scrn Urine Cocaine Screen U Marijuana (THC) Screen Drugs of Abuse Note Plasma/Serum Alcohol < 0.01 (0-0.07) % 03/31/20 Range/Units Unknown WBC (4.5-11.0) K/mm3 RBC (3.65-5.03) M/mm3 Hgb (11.8-15.2) gm/dl Hct (35.5-45.6) % MCV (84-94) fl MCH (28-32) pg MCHC (32-34) % RDW (13.2-15.2) % Plt Count (140-440) K/mm3 Lymph % (Auto) (13.4-35.0) % Schleicher % (Auto) (0.0-7.3) % Eos % (Auto) (0.0-4.3) % Baso % (Auto) (0.0-1.8) % Lymph # (1.2-5.4) K/mm3 Schleicher # (0.0-0.8) K/mm3 Eos # (0.0-0.4) K/mm3 Baso # (0.0-0.1) K/mm3 Seg Neutrophils % (40.0-70.0) % Seg Neutrophils # (1.8-7.7) K/mm3 Sodium (137-145) mmol/L Potassium (3.6-5.0) mmol/L Chloride (98-107) mmol/L Carbon Dioxide (22-30) mmol/L Anion Gap mmol/L BUN (9-20) mg/dL Creatinine (0.8-1.3) mg/dL Estimated GFR ml/min BUN/Creatinine Ratio % Glucose (75-100) mg/dL Calcium (8.4-10.2) mg/dL Urine Color (Yellow) Urine Turbidity (Clear) Urine pH (5.0-7.0) Ur Specific [place] (1.003-1.030) Urine Protein (Negative) mg/dL Urine Glucose (UA) (Negative) mg/dL Urine Ketones (Negative) mg/dL Urine Blood (Negative) Urine Nitrite (Negative) Urine Bilirubin (Negative) Urine Urobilinogen (<2.0) mg/dL Ur Leukocyte Esterase (Negative) Urine WBC (Auto) (0.0-6.0) /HPF Urine RBC (Auto) (0.0-6.0) /HPF Salicylates (2.8-20.0) mg/dL Urine Opiates Screen Negative Urine Methadone Screen Negative Acetaminophen (10.0-30.0) ug/mL Ur Barbiturates Screen Negative Ur Phencyclidine Scrn Negative Ur Amphetamines Screen Negative U Benzodiazepines Scrn Negative Urine Cocaine Screen Negative U Marijuana (THC) Screen Negative Drugs of Abuse Note Disclamer Plasma/Serum Alcohol (0-0.07) % Critical Care Time: No Critical care attestation.: If time is entered above; I have spent that time in minutes in the direct care of this critically ill patient, excluding procedure time. ED Disposition Is pt being admited?: No Time of Disposition: 13:24
[2020-03-31 12:34] LABS: Basophils % (Auto) 1.2 % (0.0-1.8); Eosinophils # (Auto) 0.3 K/mm3 (0.0-0.4); Eosinophils % (Auto) 8.2 % (0.0-4.3); Hematocrit 38.2 % (35.5-45.6); Lymphocytes # (Auto) 1.3 K/mm3 (1.2-5.4); Lymphocytes % (Auto) 33.7 % (13.4-35.0); Mean Corpuscular HGB Conc 34 % (32-34); Mean Corpuscular Volume 83 fl (84-94); Monocytes # (Auto) 0.5 K/mm3 (0.0-0.8); Monocytes % (Auto) 11.5 % (0.0-7.3); Red Blood Count 4.59 M/mm3 (3.65-5.03); Red Cell Distribution Width 13.7 % (13.2-15.2)
[2020-03-31 12:42] LABS: Platelet Count 217 K/mm3 (140-440)
[2020-03-31 12:49] LABS: BUN/Creatinine Ratio 15; Blood Urea Nitrogen 12 mg/dL (9-20); Calcium 9.6 mg/dL (8.4-10.2); Hemolysis Index 11
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
[2020-04-01] MEDS: FLUoxetine 10 MG TAB PO SCH (13:48)
--- NOTE | 2020-04-02 08:12 | Progress Note ---
Subjective - Reason for Consult Consult date: 04/02/20 Reason for consult: MHE Requesting physician: GRIFFIN LLOYD - Chief Complaint Chief complaint: Per ED Nurse: [id number] Report received from Whitney RN. Received patient in ED room 17 , calm, cooperative, no distress noted. Patient denies SI/HI/h/v, he is wearing his green scrubs and non skid socks,attached to monitoring specialist and checked his vital signs, will continue to monitor him and maintain safety precautions. Psych Progress Patient seen this AM, reports feeling much better already, denies SI, HI and AVH. Says he would be following up with his ACT team outpt and does not wish to be given any prescription since they manage his meds. REVIEW OF SYSTEMS Constitutional: Negative for weight loss ENT: Negative for stridor Respiratory: Negative for cough or hemoptysis All other systems reviewed and are negative MENTAL STATUS EXAMINATION General Appearance and Behavior: Age appropriate, good hygiene, wearing appropriate clothes, lying in bed, good eye contact, cooperative polite with questioning. Cooperation: Participating/engaged Psychomotor Behavior: , unremarkable and within normal limits Mood: "feel better" Affect and affective range: congruent with mood Thought Process: Iogical Thought Content: Within relaity Speech: Normal volume, Regular rate and rhythm Intellectual Functioning: Average Suicidal Ideation: Denies Homicidal Ideation: Denies HI Impulse Control: Unimpaired Insight and Judgment: Normal insight and judgment Memory: Normal Attention: Normal Orientation: Alert, oriented Assessment and Plan - Psychiatric problem (1) MDD (major depressive disorder) Current Visit: Yes Status: Acute RECOMMENDATIONS Does not want oupt rx MEDICATIONS: Risks, benefits and alternatives of medications discussed with the patient, questions answered and consent obtained from patient. PSYCHOTHERAPY: Supportive psychotherapy provided MEDICAL: Per primary team DELIRIUM PRECAUTIONS: Please re-orient patient frequently, keep lights on during the day, and minimize benzodiazepines and opiates as these medications could worsen patient's confusion. BOX PULLER: DISPOSITION: DO not Recommend acute inpatient psychiatric hospitalization at this time LEGAL STATUS: 1013 rescinded FOLLOW-UP: Will sing off Thank you for the consult. Please contact with any questions and/or concerns. Mental Status Exam - Vital signs Last Vital Signs Temp 98.7 F 04/02/20 02:25 Pulse 66 04/02/20 02:25 Resp 16 04/02/20 02:25 BP 108/60 04/02/20 02:25 Pulse Ox 100 04/02/20 02:25 Assessment and Plan - Patient Problems (1) MDD (major depressive disorder) Current Visit: Yes Status: Acute
[2020-04-02 08:52] VITALS: BP 117/82
[2020-04-02] MEDS: FLUoxetine 10 MG TAB PO SCH (11:06)
== END 2020-04-02 12:58 | disposition home or self-care (01) ==
LOC: EEVIPCON 11:17 → ED 11:17
DX: F20.9 Schizophrenia, unspecified (principal); Z59.0 Homelessness; Z04.6 Encounter for general psychiatric examination, requested by authority
CPT/HCPCS: 36415; 80048; 80307; 80320; 81001; 85025; G0480